=== PATIENT | male | born 1950 | race American Indian/Alaskan Native ===

== ENCOUNTER 2021-08-08 06:24 | Day surgery (SDC) | payer MEDICARE ==
[~2021-08-08 06:24] MED LIST: ACETAMINOPHEN 325 MG TAB PO NR; ACETAMINOPHEN 500 MG TAB PO SCH; GABAPENTIN 100 MG CAP PO NR; GABAPENTIN 300 MG CAP PO NR; LACTATED RINGERS 1,000 ML IV SCH; MIDAZOLAM 2 MG/2 ML INJ IV NR
[2021-08-08] MEDS ORDERED: GABAPENTIN 300 MG CAP ONE (06:52)
[2021-08-08] MEDS ORDERED: BACTERIOSTATIC SODIUM CHLORIDE 0.9% 30 ML VIAL INFILTRATI ONE (06:53)
[2021-08-08] MEDS ORDERED: GABAPENTIN 300 MG CAP PO NR (07:00)
[2021-08-08] MEDS ORDERED: ceFAZolin/STERILE WATER 2 GM/20 ML SYRINGE IV NR (07:00)
[2021-08-08] MEDS ORDERED: BUPIVACAINE/PF (0.5%) 5 MG/1 ML 30 ML VIAL INFILTRATI ONE ×2 (07:04→09:22)
[2021-08-08] MEDS ORDERED: LIDOCAINE (1%) 10 MG/1 ML VIAL 20 ML MDV ONE (07:04)
[2021-08-08] MEDS ORDERED: ONDANSETRON 4 MG/2 ML INJ ONE (07:14)
[2021-08-08] MEDS ORDERED: LIDOCAINE MPF (2%) 20 MG/1 ML VIAL 5 ML ONE (07:14)
[2021-08-08] MEDS ORDERED: dexAMETHasone 20 MG/5 ML VIAL ONE (07:14)
[2021-08-08] MEDS ORDERED: ROCURONIUM 50 MG/5 ML INJ IV ONE ×2 (07:14→09:24)
[2021-08-08] MEDS ORDERED: propofoL 200 MG/20 ML VIAL IV ONE (07:19)
[2021-08-08] MEDS ORDERED: fentaNYL 100 MCG/2 ML INJ ONE (07:19)
[2021-08-08] MEDS ORDERED: KETAMINE/STERILE WATER 50 MG/ML SYRINGE ONE (07:20)
[2021-08-08] MEDS ORDERED: GABAPENTIN 100 MG CAP PO SCH (07:30)
--- NOTE | 2021-08-08 07:32 | Anesthesia Consultation ---
Anesthesia Consult and Med Hx Date of service: 08/08/21 - Airway Anesthetic Teeth Evaluation: Good, Dentures (top incisor #9) ROM Head & Neck: Adequate Mental/Hyoid Distance: Adequate Mallampati Class: Class II Intubation Access Assessment: Probably Good - Pre-Operative Health Status ASA Pre-Surgery Classification: ASA2 Proposed Anesthetic Plan: General - Pulmonary Hx Smoking: Yes (quit 2010) Hx Respiratory Symptoms: No - Cardiovascular System Hx Hypertension: No Hx Heart Attack/AMI: No Hx Percutaneous Transluminal Coronary Angioplasty (PTCA): No Hx Cardia Arrhythmia: No - Central Nervous System CVA: No - Endocrine Hx Renal Disease: No Hx Liver Disease: No Hx Insulin Dependent Diabetes: No Hx Non-Insulin Dependent Diabetes: No Hx Thyroid Disease: No - Other Systems Hx Obesity: No - Additional Comments Anesthesia Medical History Comments: No hx anesthetic complications.
--- NOTE | 2021-08-08 07:32 | Anesthesia Day of Surgery ---
Anesthesia Day of Surgery - Day of Surgery Patient Examined: Yes Patient H&P Reviewed: Yes Patient is NPO: Yes
[2021-08-08] MEDS ORDERED: HYDROcodone/ACETAMINOPHEN 5-325 MG TAB PO PRN (08:00)
[2021-08-08] MEDS ORDERED: ONDANSETRON 4 MG/2 ML INJ IV PRN (08:00)
[2021-08-08] MEDS ORDERED: HYDROmorphone 1 MG/1 ML INJ IV PRN (08:00)
[2021-08-08] MEDS ORDERED: NEOSTIGMINE 10MG/10 ML INJ MDV ONE (08:49)
[2021-08-08] MEDS ORDERED: GLYCOPYRROLATE 0.4 MG/2 ML INJ ONE (08:49)
[2021-08-08] MEDS ORDERED: KETOROLAC 30 MG/1 ML INJ ONE (09:00)
[2021-08-08] MEDS ORDERED: HYDROmorphone 1 MG/1 ML INJ ONE (09:20)
[2021-08-08] MEDS ORDERED: WATER FOR IRRIG STERILE 1,500 ML BOTTLE IR ONE (09:25)
[2021-08-08] MEDS ORDERED: LIDOCAINE (1%) 10 MG/1 ML VIAL 20 ML MDV INFILTRATI ONE (09:26)
--- NOTE | 2021-08-08 10:16 | Short Stay Summary ---
Short Stay Documentation Date of service: 08/08/21 - History Principal diagnosis: Right inguinal hernia H&P: obtained from office - Allergies and Medications Current Medications: Allergies No Known Allergies Allergy (Unverified 07/28/21 12:20) Home Medications Medication Instructions Recorded Confirmed Last Taken Type No Known Home Medications [No 07/28/21 07/28/21 Unknown History Reported Home Medications] Active Medications Acetaminophen (Acetaminophen 325 Mg Tab) 650 mg PO PREOP NR Stop: 08/08/21 20:00 Last Admin: 08/08/21 07:30 Dose: 650 mg Documented by: Hydrocodone Bitart/Acetaminophen (Hydrocodone/Acetaminophen 5-325 Mg Tab) 2 each PO ONCE PRN PRN Reason: Pain, Moderate (4-6) Stop: 08/08/21 20:00 Cefazolin Sodium (Cefazolin/Sterile Water 2 Gm/20 Ml Syringe) 2 gm IV PREOP NR Stop: 08/08/21 23:59 Gabapentin (Gabapentin 100 Mg Cap) 100 mg PO PREOP LAMAR Stop: 08/08/21 20:00 Last Admin: 08/08/21 07:30 Dose: 100 mg Documented by: Hydromorphone HCl (Hydromorphone 1 Mg/1 Ml Inj) 0.5 mg IV Q10MIN PRN PRN Reason: Pain , Severe (7-10) Stop: 08/08/21 18:00 Lactated Ringer's (Lactated Ringers) 1,000 mls @ 100 mls/hr IV DIRECT LAMAR Stop: 08/08/21 23:59 Last Admin: 08/08/21 07:00 Dose: 100 mls/hr Documented by: Midazolam HCl (Midazolam 2 Mg/2 Ml Inj) 2 mg IV PREOP NR Stop: 08/08/21 20:00 Last Admin: 08/08/21 07:35 Dose: 2 mg Documented by: Ondansetron HCl (Ondansetron 4 Mg/2 Ml Inj) 4 mg IV ONCE PRN PRN Reason: Nausea And Vomiting Stop: 08/08/21 18:00 - Brief post op/procedure progress note Date of procedure: 08/08/21 Pre-op diagnosis: Right inguinal hernia Post-op diagnosis: same Procedure: Robotic assisted laparoscopic right inguinal hernia with mesh, right ilioinguinal nerve block Anesthesia: GETA, local (Right ilioinguinal nerve block) Findings: Large indirect inguinal hernia on right. Repaired with large 3D max right-sided mesh. Surgeon: LAKESHA CABEZAS (Assistant Professor Of Philosophy: LIZA Cole) Estimated blood loss: minimal Pathology: none Condition: stable - Hospital course Hospital course: Patient observed in PACU and discharged to home in stable condition when criteria met - Disposition Condition at discharge: Good Disposition: 01 HOME / SELF CARE / HOMELESS Short Stay Discharge Plan Activity: other (No heavy lifting for 6 weeks) Diet: regular Wound: open to air, per your surgeon's advice Additional Instructions: See printed discharge instructions Follow up with: DANIELITO DWYER MD [Primary Care Provider] - 7 Days LAKESHA CABEZAS DO [Staff Physician] - 14 Days Prescriptions: Gabapentin 300 mg PO BID #6 capsule Ibuprofen [Motrin 800 MG tab] 800 mg PO Q8HR PRN #30 tablet PRN Reason: Pain, Moderate (4-6) HYDROcodone/APAP 5-325 [Millen 5-325 mg TAB] 1 each PO Q6H PRN #20 tablet PRN Reason: Pain , Severe (7-10)
--- NOTE | 2021-08-08 13:17 | Operative Report ---
Operative Report Operative Report: Date of procedure: 08/08/21 Pre-op diagnosis: Right inguinal hernia Post-op diagnosis: same Procedure: Robotic assisted laparoscopic right inguinal hernia with mesh, right ilioinguinal nerve block Anesthesia: GETA, local (Right ilioinguinal nerve block) Findings: Large indirect inguinal hernia on right. Repaired with large 3D max right-sided mesh. Surgeon: LAKESHA CABEZAS (Timber Inspector: LIZA Cole) Estimated blood loss: minimal Pathology: none Condition: stable Hospital course: Patient observed in PACU and discharged to home in stable condition when criteria met HPI and indication: Patient is a 71-year-old male who was referred to the surgery clinic for a bulge in the right groin. He was found to have a right inguinal hernia on physical exam. It was recommended that the hernia be repaired. I discussed all risk, benefits, alternatives to repair with the patient and questions were answered. I explained that if the hernia was found on the left side at the same time, this would be fixed as well. The patient was agreeable. Consent obtained for robotic assisted right inguinal hernia repair with mesh, possible left, possible open. Procedure in detail: Patient was identified in the preoperative area, take back to operating room placed on operative table in supine position. After anesthesia was induced, a spann catheter was sterilely placed by the circulating nurse. The abdomen and b/l groins were then prepped and draped in usual sterile fashion and a timeout performed. Local anesthetic was infiltrated to skin at the intended incision sites. A supraumbilical incision was made through which a Veress needle was inserted. Veress needle positioning was confirmed using saline drop test and the abdomen insufflated to 15 mmHg. Once the abdomen was insufflated, the Veress needle was removed and a 5 mm Optiview trocar was placed as incision. The abdomen is inspected there was no underlying injury to any of the abdominal structures. Patient was placed in Trendelenburg and the pelvis examined. There was a right inguinal hernia and no obvious hernia on the left At this point, an 8 mm right upper quadrant and left upper quadrant robotic trocars were then placed under direct visualization. The 5 mm supraumbilical trocar was removed and replaced with a 12 mm balloon trocar under direct visualization. A Ray-Anneliese was placed into the abdomen. The robot was then docked. A fenestrated bipolar was placed into arm #2 and a monopolar scissor in arm #1. The surgeon was then transferred to the console. First, I created a right sided preperitoneal flap. The peritoneum was scored approximately 5 to 6 cm from the hernia defect. The peritoneum was then incised from the midline to the ASIS. The preperitoneal flap was then developed in an avascular plane. I first defined the medial margin by dissecting to the pubic tubercle. The pubic tubercle was cleared of overlying fatty tissue using blunt dissection. I then created the lateral margin in a similar fashion. Great care was taken to avoid injury to any nerves. There was an indirect inguinal hernia and the hernia sac was gently reduced using blunt dissection and transecting cremasteric fibers with electrocautery. During the dissection, the cord structures were identified and protected. The cord structures and vas deferens were visualized throughout the entire dissection. Once the hernia sac was completely reduced, the peritoneal flap was checked for hemostasis. Any additional cremasteric fibers that were were tenting up the peritoneum were divided. Hemostasis was carefully ensured. The hernia was repaired using a RIGHT large 3D max mesh. The mesh along with suture material was placed into the abdomen by the business banking sales assistant. The mesh was positioned into the preperitoneal flap in the usual fashion. The medial portion of the mesh was sutured to Johan's ligament using an interrupted 2-0 Vicryl stitch. The lateral aspect of the mesh was sutured to the anterior lateral abdominal wall using a 2-0 Vicryl interrupted stitch. The mesh was seen to lay flat in the pocket with excellent coverage. An 18 [place] Angiocath was inserted through the right lower quadrant directly into the preperitoneal pocket under direct visualization the peritoneum was then reapproximated using 3-0 running V- Loc stitch. The entirety of the mesh was covered with peritoneum. A small defect in the peritoneum was repaired using 2-0 vicryl figure of 8 stitch. The robot was then undocked and the surgeon scrubbed back in. The remainder of the case was performed laparoscopically. All sharp materials along with a Ray-Anneliese were removed from the abdomen under direct visualization. The 12 mm port was removed and the fascia closed using a interrupted 0 Vicryl stitch. The abdomen was then slowly desufflated and the mesh was seen to lay flat in the preperitoneal space. The remaining trocars were removed. Any scrotal gas was evacuated via the Angiocath and this was then removed. Skin incisions were once again infiltrated with local anesthetic. RIGHT ilioinguinal nerve block was also performed with 5 cc of local anesthetic. The skin incisions were approximated with 4-0 Monocryl subcuticular stitches and skin glue. At the end of the case all sponge, instrument, sharp counts were correct x2. Patient was awoken from anesthesia and Spann catheter removed. Both testicles were palpated in the scrotum in anatomic position. The patient was taken to PACU in stable condition.
--- NOTE | 2021-08-08 14:30 | Post Anesthesia Evaluation ---
- Post Anesthesia Evaluation Patient Participated: Yes Airway Patent: Yes Stable Respiratory Function: Yes Nausea/Vomiting: No Temp > 96.8F: Yes Pain Manageable: Yes Adequeate Hydration: Yes Anesthesia Complications: No
[2021-08-08 21:59] VITALS: BP 135/88
== END 2021-08-08 06:25 | disposition home or self-care (01) ==
LOC: OR 06:24
PROVIDERS: ATTEND Surgery
DX: K40.90 Unilateral inguinal hernia, without obstruction or gangrene, not specified as recurrent (principal); K21.9 Gastro-esophageal reflux disease without esophagitis; Z20.822 Contact with and (suspected) exposure to COVID-19; Z87.891 Personal history of nicotine dependence; Z79.899 Other long term (current) drug therapy; Z98.890 Other specified postprocedural states
CPT/HCPCS: 49650; C1781; J0690; J1100; J1170; J1885; J2250; J2405; J2704; J2710; J3010; J3490; J7120; U0003